=== PATIENT | female | born 1955 | race Caucasian/White ===

== ENCOUNTER 2022-06-08 17:44 | Emergency (ER) | payer MEDICAID ==
[2022-06-08] MEDS ORDERED: KETAMINE 500 MG/10 ML VIAL IM STA ×3 (17:47→19:22)
--- NOTE | 2022-06-08 17:49 | ED Physician Documentation ---
PD HPI MHE - Stated complaint Stated Complaint: MHE - History obtained from History obtained from: Police - Additional information Additional information: 67-year-old woman brought in by police with reported history of schizophrenia. She has been acting strange and is gravely disabled. I am unable to obtain any history from the patient because she is uncooperative. Review of Systems Unable to obtain: Uncooperative PD PAST MEDICAL HISTORY - Past Medical History Psych: Schizophrenia Musculoskeletal: Osteoporosis - Past Surgical History Past Surgical History: Yes - Present Medications Home Medications: Ambulatory Orders Medication Instructions Recorded Confirmed Ziprasidone [Geodon] 160 mg PO DAILY 05/16/13 05/13/15 - Allergies Allergies/Adverse Reactions: Allergies Allergy/AdvReac Type Severity Reaction Status Date / Time No Known Drug Allergies Allergy Verified 05/16/13 12:52 - Social History Does the pt smoke?: No Smoking Status: Never smoker Does the pt drink ETOH?: No Does the pt have substance abuse?: No PD ED PE NORMAL - Vitals Vital signs reviewed: Yes - General General: Other (She is aggressive, fixated on external stimulus, fighting staff.) - HEENT HEENT: PERRL, EOMI - Neck Neck: Supple, no meningeal sign, No bony TTP - Cardiac Cardiac: RRR, No murmur - Respiratory Respiratory: No respiratory distress, Clear bilaterally - Abdomen Abdomen: Normal bowel sounds, Soft, Non tender - Back Back: No CVA TTP, No spinal TTP - Derm Derm: Normal color, Warm and dry - Extremities Extremities: No edema, No calf tenderness / cord - Psych Psych: Other (Aggressive, spitting fighting and swearing, speaking in tongues) Results - Vitals Vitals: Vital Signs - 24 hr 06/08/22 06/08/22 06/08/22 17:54 19:40 20:30 Temperature 37.4 C 36.2 C L Heart Rate 102 H 90 Respiratory 20 16 Rate Blood Pressure 187/104 H 148/87 H O2 Saturation 100 96 06/08/22 06/08/22 06/08/22 20:38 22:01 22:03 Temperature 36.5 C 36.8 C Heart Rate 85 100 106 H Respiratory 16 16 19 Rate Blood Pressure 148/87 H 161/66 H 151/90 H O2 Saturation 95 98 98 06/08/22 06/08/22 06/08/22 22:45 23:00 23:30 Temperature Heart Rate 85 85 82 Respiratory 23 16 20 Rate Blood Pressure 172/90 H 186/96 H 165/74 H O2 Saturation 97 99 98 06/09/22 06/09/22 06/09/22 00:00 00:40 01:00 Temperature 36.3 C L Heart Rate 87 81 78 Respiratory 19 20 16 Rate Blood Pressure 180/101 H 165/99 H 159/88 H O2 Saturation 97 96 98 06/09/22 06/09/22 06/09/22 02:10 02:34 03:30 Temperature 36.9 C 37.0 C Heart Rate 74 86 169 H Respiratory 13 18 14 Rate Blood Pressure 169/101 H 155/88 H 169/87 H O2 Saturation 96 100 100 06/09/22 06/09/22 06/09/22 04:00 04:15 05:00 Temperature 36.9 C 37.0 C Heart Rate 70 77 73 Respiratory 13 12 13 Rate Blood Pressure 122/78 120/73 174/96 H O2 Saturation 96 100 96 06/09/22 06/09/22 06/09/22 05:30 06:00 06:56 Temperature 36.3 C L Heart Rate 71 78 67 Respiratory 15 15 24 Rate Blood Pressure 148/81 H 148/81 H 125/66 O2 Saturation 97 99 97 06/09/22 08:00 Temperature 36.4 C L Heart Rate 68 Respiratory 12 Rate Blood Pressure 159/80 H O2 Saturation 98 Oxygen O2 Source Room air - EKG (time done) 1948 Rate: Rate (enter#) (97) Rhythm: NSR Intervals: RBBB, Other (LAFB) QRS: Normal Ischemia: Normal ST segments - Labs Labs: Microbiology 06/08/22 19:40 Urine Culture - Preliminary Urine,Catheterized CULTURE IN PROGRESS. RESULTS TO FOLLOW. Laboratory Tests 06/08/22 06/08/22 06/08/22 18:03 18:03 18:03 WBC 5.0 RBC 3.93 L Hgb 12.8 Hct 38.8 MCV 98.7 MCH 32.6 H MCHC 33.0 RDW 13.5 Plt Count 222 MPV 9.1 Neut # (Auto) 3.6 Lymph # (Auto) 0.9 L [place] # (Auto) 0.4 Eos # (Auto) 0.1 Baso # (Auto) 0.0 Absolute Nucleated RBC 0.00 Nucleated RBC % 0.0 Sodium 140 Potassium 3.5 Chloride 109 Carbon Dioxide 22 Anion Gap 9.0 BUN 22 H Creatinine 0.5 Estimated GFR (MDRD) 122 Glucose 101 H Calcium 9.4 Total Bilirubin 0.5 AST 28 ALT 20 Alkaline Phosphatase 85 Total Protein 6.8 Albumin 4.1 Globulin 2.7 Albumin/Globulin Ratio 1.5 Lipase 31 TSH 1.24 Urine Color Urine Clarity Urine pH Ur Specific [place] Urine Protein Urine Glucose (UA) Urine Ketones Urine Occult Blood Urine Nitrite Urine Bilirubin Urine Urobilinogen Ur Leukocyte Esterase Urine RBC Urine WBC Ur Squamous Epith Cells Urine Crystals Urine Bacteria Ur Microscopic Review Urine Culture Comments Salicylates < 6.0 Urine Opiates Screen Ur Oxycodone Screen Urine Methadone Screen Ur Propoxyphene Screen Acetaminophen < 10 L Ur Barbiturates Screen Ur Tricyclics Screen Ur Phencyclidine Scrn Ur Amphetamine Screen U Methamphetamines Scrn U Benzodiazepines Scrn Urine Cocaine Screen U Cannabinoids Screen Ethyl Alcohol < 5.0 SARS-CoV-2 (PCR) 06/08/22 06/08/22 18:09 19:40 WBC RBC Hgb Hct MCV MCH MCHC RDW Plt Count MPV Neut # (Auto) Lymph # (Auto) [place] # (Auto) Eos # (Auto) Baso # (Auto) Absolute Nucleated RBC Nucleated RBC % Sodium Potassium Chloride Carbon Dioxide Anion Gap BUN Creatinine Estimated GFR (MDRD) Glucose Calcium Total Bilirubin AST ALT Alkaline Phosphatase Total Protein Albumin Globulin Albumin/Globulin Ratio Lipase TSH Urine Color LT. YELLOW Urine Clarity HAZY Urine pH 6.0 Ur Specific [place] 1.025 Urine Protein NEGATIVE Urine Glucose (UA) NEGATIVE Urine Ketones 15 H Urine Occult Blood TRACE-INTA Urine Nitrite POSITIVE H Urine Bilirubin NEGATIVE Urine Urobilinogen 0.2 (NORMAL) Ur Leukocyte Esterase SMALL H Urine RBC 6-10 H Urine WBC 11-25 H Ur Squamous Epith Cells NONE SEEN Urine Crystals 3-5 Calcium Oxalate Urine Bacteria Moderate H Ur Microscopic Review INDICATED Urine Culture Comments INDICATED Salicylates Urine Opiates Screen NEGATIVE Ur Oxycodone Screen NEGATIVE Urine Methadone Screen NEGATIVE Ur Propoxyphene Screen NEGATIVE Acetaminophen Ur Barbiturates Screen NEGATIVE Ur Tricyclics Screen NEGATIVE Ur Phencyclidine Scrn NEGATIVE Ur Amphetamine Screen NEGATIVE U Methamphetamines Scrn NEGATIVE U Benzodiazepines Scrn NEGATIVE Urine Cocaine Screen NEGATIVE U Cannabinoids Screen NEGATIVE Ethyl Alcohol SARS-CoV-2 (PCR) NOT DETECTED PD MEDICAL DECISION MAKING - ED course ED course: 67-year-old woman with history of schizophrenia presents decompensated, aggressive and brought in by police. She was shackled by police but clearly needed both chemical and physical restraint which were started simultaneously, thusly only 1 [id number] note. A bit later she was also given some IM Zyprexa. Note this was for psychosis; not for sedation/restraints. Later she did require more actual restraint and ketamine was repeated, this time with IM Haldol. [id number] repeated, note made that the chemical restraint order will only allow 1 medication order, but the chemical restraint order was for both the ketamine and Haldol IM. She is calm and sedated as of 8:30 PM and restraints are discontinued. DCR eval pending at shift change. Departure - Departure Clinical Impression: Schizophrenia Qualifiers: Schizophrenia type: disorganized schizophrenia Qualified Code(s): F20.1 - Disorganized schizophrenia Condition: Stable
--- NOTE | 2022-06-08 17:50 | ED Physician Documentation ---
Face to Face for Restraints - Immediate Situation Face to Face Evaluation Date: 06/08/22 Face to Face Evaluation Time: 17:49 Restraint Situation: Locking, Physical Escort, Physical Hold, Chemical Patient's Reactions to the Intervention: Fighting restraints, Spitting, Screaming/Yelling - Behavioral Condition Attitude: Indifferent Behavior: Belligerent, Agitated Orientation: Not oriented to person, place, time, and situation Mood: Labile, Angry - Evaluation Review of Systems: not cooperative Pertinent History/Illicit Drugs/Medications/Results: hx schizophrenia - Plan Need to Continue or Terminate Violent or Chemical Restraint: Patient seen on arrival and clearly needed both physical and chemical restraints. This [id number] is for both as both were instituted simultaneously. She was given 150 mg of ketamine in each thigh and restrained with locking restraints.
[2022-06-08] MEDS ORDERED: KETAMINE 500 MG/10 ML VIAL ONE (17:59)
[2022-06-08 18:08] LABS: BASOPHILS % (AUTO) 0.4 %; EOSINOPHILS # (AUTO) 0.1 10^3/uL (0.0-0.7); HCT - HEMATOCRIT 38.8 % (37.0-47.0); HGB - HEMOGLOBIN 12.8 g/dL (12.0-16.0); LYMPHOCYTES # (AUTO) 0.9 10^3/uL (1.5-3.5); LYMPHOCYTES % (AUTO) 17.4 %; MEAN CORPUSCULAR HEMOGLOBIN 32.6 pg (27.0-31.0); MEAN CORPUSCULAR VOLUME 98.7 fL (81.0-99.0); MEAN PLATELET VOLUME 9.1 fL (7.9-10.8); MONOCYTES # (AUTO) 0.4 10^3/uL (0.0-1.0); MONOCYTES % (AUTO) 8.9 %; NEUTROPHILS # (AUTO) 3.6 10^3/uL (1.5-6.6); NEUTROPHILS % (AUTO) 71.7 %; PLT - PLATELET COUNT 222 10^3/uL (130-450); RED BLOOD COUNT 3.93 10^6/uL (4.20-5.40); RED CELL DISTRIBUTION WIDTH 13.5 % (12.0-15.0)
[2022-06-08] MEDS ORDERED: OLANZapine 10 MG VIAL IM STA (18:26)
[2022-06-08 18:27] LABS: ACETAMINOPHEN < 10 ug/mL (10-30); ALBUMIN 4.1 g/dL (3.2-5.5); ALBUMIN/GLOBULIN RATIO 1.5 (1.0-2.2); ALKALINE PHOSPHATASE 85 IU/L (42-121); ALT ALANINE AMINOTRANSFERASE 20 IU/L (10-60); AST ASPARTATE AMINOTRANSFERASE 28 IU/L (10-42); BILIRUBIN,TOTAL 0.5 mg/dL (0.2-1.0); BUN - BLOOD UREA NITROGEN 22 mg/dL (6-20); CALCIUM 9.4 mg/dL (8.5-10.3); CARBON DIOXIDE - CO2 22 mmol/L (21-32); CHLORIDE 109 mmol/L (101-111); CREATININE 0.5 mg/dL (0.4-1.0); ETOH - ETHANOL < 5.0 mg/dL; GFR - MDRD 122 (>89); GLUCOSE 101 mg/dL (70-100); LIPASE 31 U/L (22-51); POTASSIUM 3.5 mmol/L (3.5-5.0); SALICYLATE < 6.0 mg/dL; SODIUM 140 mmol/L (135-145); TOTAL PROTEIN 6.8 g/dL (6.7-8.2)
[2022-06-08] MEDS ORDERED: HALOPERIDOL 5 MG/ML VIAL IM STA ×2 (19:21→19:22)
--- NOTE | 2022-06-08 19:32 | ED Physician Documentation ---
Face to Face for Restraints - Immediate Situation Face to Face Evaluation Date: 06/08/22 Face to Face Evaluation Time: 19:31 Restraint Situation: Chemical Patient's Reactions to the Intervention: Asking for information, Swearing, Screaming/Yelling - Behavioral Condition Attitude: Indifferent Behavior: Belligerent, Agitated Orientation: Not oriented to person, place, time, and situation Mood: Labile, Angry - Evaluation Review of Systems: not cooperative Pertinent History/Illicit Drugs/Medications/Results: hx schizophrenia - Plan Need to Continue or Terminate Violent or Chemical Restraint: Remedicated with ketamine and Haldol with hopeful improvement of her psychosis. Note made that the current chemical restraint order would only allow a single med to be ordered, but this [id number] is for the ketamine and Haldol administered simultaneously.
[2022-06-08 19:51] LABS: MUDS CUTOFF CONCENTRATIONS CUTOFF CONC BELOW:
[2022-06-08 19:53] LABS: BILIRUBIN,URINE NEGATIVE (NEGATIVE); GLUCOSE, URINE (UA) NEGATIVE (NEGATIVE); KETONES,URINE (UA) 15 mg/dL (NEGATIVE); LEUKOCYTE ESTERASE, URINE SMALL (NEGATIVE); NITRITE,URINE POSITIVE (NEGATIVE); OCCULT BLOOD,URINE TRACE-INTA (NEGATIVE); PROTEIN,URINE NEGATIVE (NEGATIVE); UROBILINOGEN,URINE 0.2 (NORMAL) E.U./dL (NORMAL)
[2022-06-08 19:57] LABS: CLARITY,URINE HAZY (CLEAR)
[2022-06-08 20:03] LABS: AMPHETAMINE SCREEN,URINE NEGATIVE (NEGATIVE); BARBITURATE SCREEN,UR NEGATIVE (NEGATIVE); BENZODIAZEPINES SCREEN, URINE NEGATIVE (NEGATIVE); COCAINE SCREEN URINE NEGATIVE (NEGATIVE); METHADONE SCREEN, URINE NEGATIVE (NEGATIVE); METHAMPHETAMINES SCREEN, URINE NEGATIVE (NEGATIVE); OPIATE SCREEN, URINE NEGATIVE (NEGATIVE); OXYCODONE SCREEN, URINE NEGATIVE (NEGATIVE); PROPOXYPHENE SCREEN, URINE NEGATIVE (NEGATIVE); THC CANNABINOID SCREEN, URINE NEGATIVE (NEGATIVE); TRICYCLIC ANTIDEPRESSANT,URINE NEGATIVE (NEGATIVE)
[2022-06-08 20:07] LABS: BACTERIA,URINE Moderate /HPF (None Seen); CRYSTALS,URINE 3-5 Calcium Oxalate /LPF; SQUAMOUS EPITHELIAL CELL,UR NONE SEEN (<= Few)
--- NOTE | 2022-06-08 22:07 | ED Physician Documentation ---
Face to Face for Restraints - Immediate Situation Face to Face Evaluation Date: 06/08/22 Face to Face Evaluation Time: 22:06 Restraint Situation: Locking, Physical Escort, Physical Hold Patient's Reactions to the Intervention: Fighting restraints, Screaming/Yelling - Behavioral Condition Attitude: Indifferent Behavior: Belligerent, Agitated Orientation: Not oriented to person, place, time, and situation Mood: Labile, Angry - Evaluation Review of Systems: not cooperative Pertinent History/Illicit Drugs/Medications/Results: hx schizophrenia - Plan Need to Continue or Terminate Violent or Chemical Restraint: Will discontinue when it is safe for both patient and staff.
[2022-06-09] MEDS ORDERED: cefTRIAXone 1 GM VIAL IM STA (00:56)
[2022-06-09] MEDS ORDERED: LIDOCAINE 1% 2 ML VIAL MC ONE (00:56)
--- NOTE | 2022-06-09 00:57 | ED Physician Documentation ---
ED Addendum - Addendum Addendum: 06/09/22 [id number] - Patient has been seen by the DCR and will be involuntarily detained As she appears gravely disabled and found to be in danger to herself. Her urine is concerning for an infection. Unable to get any meaningful history from the patient to determine if she is symptomatic but will treat. Does not appear that patient will take p.o. medication so we will order IM Rocephin. 06/09/22 03:14 Patient was attempting to get out of bed and leave. Unable to be verbally redirected by staff. Attempting to swing out at them. Patient placed back into wrist restraintsTo ensure her safety as well as the safety of staff. Patient to be signed out to oncoming provider at shift change. Patient remains In the ED awaiting placement which DCR is looking for.
--- NOTE | 2022-06-09 03:14 | ED Physician Documentation ---
Face to Face for Restraints - Immediate Situation Face to Face Evaluation Date: 06/09/22 Face to Face Evaluation Time: 03:13 Restraint Situation: Locking Patient's Reactions to the Intervention: Fighting restraints, Screaming/Yelling - Behavioral Condition Attitude: Indifferent Behavior: Agitated Orientation: Not oriented to person, place, time, and situation Mood: Labile - Evaluation Review of Systems: not cooperative Pertinent History/Illicit Drugs/Medications/Results: hx schizophrenia - Plan Need to Continue or Terminate Violent or Chemical Restraint: We will remove Restraints when it is safe to do so for both patient and staff
--- NOTE | 2022-06-09 07:34 | ED Physician Documentation ---
Face to Face for Restraints - Immediate Situation Face to Face Evaluation Date: 06/09/22 Face to Face Evaluation Time: 07:25 Restraint Situation: Locking Patient's Reactions to the Intervention: Compliant, Other (sometimes tugs at restraints. Seems confused/unfocused, poor command following. Does say she feels cool and given another blanket.) - Behavioral Condition Attitude: Indifferent Behavior: Agitated (intermittently) Orientation: Person Mood: Content (seems content at the moment but staff says she gestured to hit at them during past few hours still. Will need further assessment time and clearing mentation.) Behavioral Condition Comments: seems confused to sluggish to respond. Not clear being able to follow direction. - Evaluation Review of Systems: not cooperative Pertinent History/Illicit Drugs/Medications/Results: hx schizophrenia - Plan Need to Continue or Terminate Violent or Chemical Restraint: Continue/renew restraints at this time to allow further assessment of lability for physical actions toward staff.
--- NOTE | 2022-06-09 07:48 | ED Physician Documentation ---
ED Addendum - Addendum Addendum: 06/09/22 07:45 The patient reportedly had impulsive physical activity with abruptly pulling at her restraints towards providers or such through the night. Otherwise had been still sleeping or calm. As such I did renew the restraints for now and we will continue to assess her lability and activity. She did answer questions sluggishly and was able to tell me her name. She did states she was slightly cool when asked if she had any complaints. She had received IM medications yesterday and evening. Old chart from years ago looks like she has been on Geodon. Unknown if current medications. The patient seemingly has had a psychotic episode. [facility] [place] [facility], it would make sense to resume some oral medication to help treat her symptoms. I can order a low-dose of the Geodon. This will take a little bit longer for onset through the day. I ordered a p.o. dose of Zyprexa in treatment of her psychosis. The goal is to help with her symptoms through the day. DCR is a apparently looking for facility placement for her.
[2022-06-09] MEDS ORDERED: OLANZapine ODT 5 MG TABLET TL ONE (08:00)
[2022-06-09] MEDS ORDERED: ZIPRASIDONE 20 MG CAPSULE PO SCH (08:00)
--- NOTE | 2022-06-09 15:20 | ED Physician Documentation ---
ED Addendum - Addendum Addendum: 06/09/22 15:19The patient has remained calm and rather sleepy but arousable. She is completely out of restraints. I talked with one of the intake nurse coordinators for all care who wanted an update on the patient's current condition. I updated her on the current status and they are going to presented to their licensed provider.
[2022-06-10 11:46] VITALS: BP 124/60
--- NOTE | 2022-06-10 12:03 | ED Physician Documentation ---
ED Addendum - Addendum Addendum: 06/10/22 12:03 Patient is here awaiting involuntary mental health placement. She reportedly did not have to be placed into restraints overnight. She is still awaiting placement with DCR. DCR was recontacted this morning by the charge nurse. Patient is calm and cooperative currently
--- NOTE | 2022-06-10 12:56 | ED Physician Documentation ---
ED Addendum - Addendum Addendum: 06/10/22 12:55 She was accepted as of this time to [facility] by Dr. Dusty Gutierres. Cobras are completed and she is stable for transport. Disposition transferred to [facility] for psychiatric care Condition: Stable Diagnosis 1. Psychosis
== END 2022-06-10 14:35 ==
LOC: ED 17:44
DX: F20.1 Disorganized schizophrenia (principal); F29 Unspecified psychosis not due to a substance or known physiological condition; Z20.822 Contact with and (suspected) exposure to COVID-19; Z78.1 Physical restraint status
CPT/HCPCS: 36415; 51701; 80053; 80306; 80307; 80320; 80329; 81001; 83690; 84443; 85025; 87086; 87635; 93005; 96372; 99285; A9270; 81003